=== PATIENT | female | born 1945 | race Caucasian/White ===

== ENCOUNTER → 2016-03-06 | Outpatient (CLI) | payer OTHER ==
[~2016-03-06] VITALS: Ht 154.9 cm; Wt 55.3 kg
[~2016-03-06] MED LIST: ADULT LOW DOSE81 MG PO; ADVAIR HFA115 MCG/21 INH; ALBUTEROL2.5 MG/0.1 INH; AMOX TR-K CLV1 EAC4 PO; ANTI-DIARRHEAL2 M1 PO; ATIVAN1 MG PO; AUGMENTIN 500-1 EACH PO; DEXAMETHASONE 44 M1 PO; DUONEB 2.5-0.5 M3 ML INH; FOLIC ACID1 MG PO; HYDROCODON-ACE1 EAC7 PO; HYDROCODONE-AP1 EAC6 PO; LEVAQUIN 500 M500 M2 PO; LIDOCREAM5 GM TP; MAGNESIUM OXID400 MG PO; MIRTAZAPINE15 M2 PO; MORPHINE SULFAT15 M3 PO; MORPHINE SULFAT15 M4 PO; MS CONTIN 60 MG60 MG PO; MS CONTIN15 MG PO; NITROGLYCERIN0.4 MG SUBLING; PANTOPRAZOLE SO40 M1 PO; PREDNISONE 20 M20 MG PO; PROTONIX 20 MG20 M1 PO; REGLAN 5 MG TAB5 MG PO; SPIRIVA INH; SYMBICORT160 MCG/4. INH; TOPROL XL25 MG PO; VENTOLIN HFA 1818 GM INH; ZANTAC 150MG T150 MG PO; ZOFRAN ODT4 MG DISSOLVE
--- NOTE | ~2016-03-06 | S ---
[facility] [place] [address] SURGICAL PATH RPT PROCEDURE Name: MARGI BRIAN Room #: [facility]..#: [id number] Admission: 03/06/16 Date of : 47 Discharge: Report #: [id number] Path Case #: [id number] PATHOLOGY REPORT COLLECTION DATE: 03/06/2016 RECEIVED DATE: 03/07/2016 SUBMITTING PHYS: Dr. Armaan Peña OTHER PHYS: Dr. Kiel Monterroso SPECIMEN(S) RECEIVED: A.Right lung mass * * * * * * * * * * * * FINAL DIAGNOSIS: Lung, needle core biopsy: - WELL DIFFERENTIATED ADENOCARCINOMA IN AN ACINAR PATTERN. COMMENT: Co-review: Dr. Sindi Bond Findings are discussed with Dr. Kiel Monterroso at 1:14 pm on 03/08/16. (IUV:all; d/t: 03/08/2016) PATHOLOGIST: Kita Bailey M.D. REPORT ELECTRONICALLY SIGNED BY: Kita Bailey M.D. DATE/TIME: 03/08/2016 15:35 * * * * * * * * * * * * GROSS PATHOLOGY: The specimen is received in formalin, labeled "BrianLilliamcy and lung bx." Received is a 0.8 x 0.3 x 0.2 cm aggregate of white-alarcon and irregular soft tissue fragments. The specimen is entirely submitted in cassette A1. (TTL; 03/07/2016) CLINICAL HISTORY: Right lung mass INITIAL CPT CODE(S): A; 60038 Professional services performed by [facility] at [facility] [address] [place] [address] Technical services performed by [facility] at [address] [place] [id number]. [facility] [address] [place] [address] SURGICAL PATH RPT PROCEDURE Name: MARGI BRIAN Room #: TASHA Valdez#: [id number] Admission: 03/06/16 Date of : 47 Discharge: Report #: [id number] Path Case #: [id number] [address] PHONE: [phone] DIRECTOR: Twin Velázquez M.D. * * * END OF REPORT * * *
[2016-03-06 08:39] VITALS: BP 143/75
[2016-03-06 09:03] LABS: HEMATOCRIT 42.2 % (37.0-47.0); HEMOGLOBIN 14.1 gm/dL (12.0-15.0); MCH 33.3 pg (26.0-34.0); MCHC 33.5 % (28.0-37.0); MCV 99.4 fL (80.0-100.0); RBC 4.25 mil/uL (4.20-5.00); RDW 16.5 % (10.5-14.5); WBC 5.8 thou/uL (4.0-11.0)
[2016-03-06 09:15] LABS: CALCIUM 8.9 mg/dL (8.5-10.1); CREATININE 0.9 mg/dL (0.6-1.3); POTASSIUM 4.1 mmol/L (3.5-5.1)
[2016-03-06 09:18] LABS: APTT 25.6 Seconds (24.5-32.8); PROTIME 10.7 Seconds (9.3-11.4)
[2016-03-06 10:50] VITALS: BP 143/75
== END ==
LOC: CAT 08:00
PROVIDERS: Internal Medicine Pulmonary Disease
DX: C34.91 Malignant neoplasm of unspecified part of right bronchus or lung (principal); I10 Essential (primary) hypertension; J44.1 Chronic obstructive pulmonary disease with (acute) exacerbation; J44.0 Chronic obstructive pulmonary disease with (acute) lower respiratory infection

== ENCOUNTER 2016-05-21 17:24 | Inpatient (IN) | payer OTHER, MEDICARE ==
[~2016-05-21] VITALS: Ht 154.9 cm; Wt 51.6 kg
--- NOTE | ~2016-05-21 | H ---
[facility] [place] [address] HISTORY AND PHYSICAL Name: BLANE MICHELE Room #: 418-P ADM IN M.R.#: [id number] Admission: 05/21/16 Attend Phys: Lolis Suazo Discharge: Date of : 47 Report #: [id number] THIS REPORT FOR: //name// CC: Sukhdev Germain DATE OF SERVICE: 05/21/2016 CHIEF COMPLAINT: Weakness. HISTORY OF PRESENT ILLNESS: The patient is a 70-year-old female with a history of lung cancer, has undergone chemotherapy, was admitted from the office today with weakness. She has been seen twice in the last week with loss of appetite, general weakness and some nausea. She lost her appetite and has not been eating well. She has been complaining of more generalized pain. Dr. Germain admitted her yesterday for evaluation and treatment. PAST MEDICAL HISTORY: Right-sided lung cancer, COPD, hypertension, history of pneumonia, history of asthma. PAST SURGICAL HISTORY: Hysterectomy, cholecystectomy, hernia repair. FAMILY HISTORY: Noncontributory. SOCIAL HISTORY: 49-mnsu-nanr history of smoking. ALLERGIES: CODEINE. MEDICATIONS: Symbicort, Protonix, magnesium, DuoNeb, Toprol, Ventolin, Zofran. REVIEW OF SYSTEMS: She is confused, really cannot give a review. PHYSICAL EXAMINATION: VITAL SIGNS: Temperature 97, pulse 98, respirations 20, blood pressure 109/40, O2 sat 94% on 2 liters. GENERAL: She is awake, seems weak, a little confused, seems to know she is in the hospital. LUNGS: Clear. HEART: Regular. ABDOMEN: Soft, normoactive bowel sounds. EXTREMITIES: No edema. LABORATORY DATA: White count 2.2, hemoglobin 8, platelets is 27,000, potassium 3.1, BUN and creatinine stable, calcium is low, albumin is 2.3. ASSESSMENT: 1. Lung cancer. [facility] [address] [place] [address] HISTORY AND PHYSICAL Name: BLANE MICHELE Room #: 418-P [facility] IN [facility]#: [id number] Admission: 05/21/16 Attend Phys: Lolis Suazo Discharge: Date of : 47 Report #: [id number] 2. Pancytopenia. 3. Electrolyte disturbance. 4. Severe protein calorie malnutrition. PLAN: Supportive measures at this point with IV fluids and electrolyte replacement. Home medications to continue. I will ask Oncology to see her as well. <ELECTRONICALLY SIGNED> By: Sam Mesa MD 05/22/16 1101 1038 1054 Sam Mesa MD /nt
--- NOTE | ~2016-05-21 | D ---
[facility] [place] [address] DISCHARGE SUMMARY Name: BLANE MICHELE Room #: 430-P ADM IN M.R.#: [id number] Admission: 05/21/16 Attend Phys: Lolis Suazo Discharge: Date of : 47 Report #: [id number] THIS REPORT FOR: //name// CC: Sukhdev Germain DATE OF SERVICE: 05/24/2016 FINAL DIAGNOSES: 1. Lung cancer. 2. Chronic obstructive pulmonary disease. 3. Metabolic encephalopathy. HOSPITAL COURSE: The patient was admitted from home with confusion and weakness. She had not been eating well, was somewhat dehydrated. IV fluids were added and electrolytes were supplemented. She had confusion during her stay and I lowered her doses of morphine and discontinued Ativan. She improved dramatically with this overnight. Dr. Schaeffer saw her in consultation who knows her from outpatient chemotherapy. She was pancytopenic, but no treatment was indicated at this point. Plan was to follow up as an outpatient. PHYSICAL EXAMINATION: GENERAL: On the day of discharge, she was awake and alert and oriented to place and situation. She had stable vital signs. LUNGS: Clear. HEART: Regular. ABDOMEN: Soft. EXTREMITIES: Showed no edema. DISPOSITION: To be discharged to home with diet and activity as tolerated. FOLLOWUP: With Dr. Germain and Dr. Schaeffer in 1 week. DISCHARGE MEDICATIONS: She will resume all home medications, but decrease morphine ER to 15 mg twice a day and morphine IR 15 mg half tab q. 6 hours p.r.n. pain. <ELECTRONICALLY SIGNED> By: Sam Mesa MD 05/24/16 1221 1044 1120 Sam Mesa MD /nt
[~2016-05-21 17:24] MED LIST changes: -MORPHINE SULFAT15 M3 PO
[2016-05-21 18:42] VITALS: BP 118/56
[2016-05-21 20:00] VITALS: BP 119/52
[2016-05-21 22:32] LABS: HEMATOCRIT 25.4 % (37.0-47.0); HEMOGLOBIN 8.8 gm/dL (12.0-15.0); MCH 34.1 pg (26.0-34.0); MCHC 34.6 g/dL (28.0-37.0); MCV 98.6 fL (80.0-100.0); RBC 2.57 mil/uL (4.20-5.00); RDW 15.9 % (10.5-14.5); WBC 2.3 thou/uL (4.0-11.0)
[2016-05-21 22:39] LABS: MANUAL DIFF YES
[2016-05-21 22:44] LABS: CALCIUM 8.4 mg/dL (8.5-10.1); CREATININE 0.8 mg/dL (0.6-1.3); POTASSIUM 3.4 mmol/L (3.5-5.1)
[2016-05-21 23:41] LABS: ABSOLUTE NEUTROPHILS 0.3 thou/uL (1.4-8.2); ATYPICAL LYMPHS 3 %; TOTAL CELL COUNT 100
[2016-05-21 23:42] LABS: PLATELET COUNT 27 thou/uL (150-400)
[2016-05-22 04:48] VITALS: BP 127/61
[2016-05-22 05:49] LABS: HEMATOCRIT 23.9 % (37.0-47.0); HEMOGLOBIN 8.1 gm/dL (12.0-15.0); MCH 33.5 pg (26.0-34.0); MCHC 33.7 g/dL (28.0-37.0); MCV 99.2 fL (80.0-100.0); RBC 2.41 mil/uL (4.20-5.00); RDW 15.8 % (10.5-14.5); WBC 2.2 thou/uL (4.0-11.0)
[2016-05-22 06:21] LABS: ALBUMIN 2.3 g/dL (3.4-5.0); CALCIUM 7.9 mg/dL (8.5-10.1); CREATININE 0.7 mg/dL (0.6-1.3); POTASSIUM 3.1 mmol/L (3.5-5.1); TOTAL BILIRUBIN 0.4 mg/dL (<0.1-1.0)
[2016-05-22 07:15] VITALS: BP 109/40
[2016-05-22 11:30] VITALS: BP 110/57
[2016-05-22 15:00] VITALS: BP 130/50
[2016-05-22 20:00] VITALS: BP 120/50
[2016-05-23 06:48] LABS: HEMATOCRIT 23.2 % (37.0-47.0); HEMOGLOBIN 7.9 gm/dL (12.0-15.0); WBC 2.1 thou/uL (4.0-11.0)
[2016-05-23 06:50] LABS: MCH 33.9 pg (26.0-34.0); MCHC 34.2 g/dL (28.0-37.0); RBC 2.34 mil/uL (4.20-5.00); RDW 16.5 % (10.5-14.5)
[2016-05-23 06:52] LABS: MANUAL DIFF YES
[2016-05-23 06:54] LABS: PLATELET COUNT 37 thou/uL (150-400)
[2016-05-23 07:19] LABS: CALCIUM 7.7 mg/dL (8.5-10.1); CREATININE 0.6 mg/dL (0.6-1.3)
[2016-05-23 07:52] VITALS: BP 104/59
[2016-05-23 07:58] LABS: ABSOLUTE NEUTROPHILS 0.6 thou/uL (1.4-8.2); TOTAL CELL COUNT 100
[2016-05-23 08:00] LABS: ANISOCYTOSIS 1+
[2016-05-23 14:23] VITALS: BP 100/54
[2016-05-23 20:46] VITALS: BP 99/40
[2016-05-24 04:00] VITALS: BP 133/70
[2016-05-24 05:09] LABS: HEMATOCRIT 23.1 % (37.0-47.0); HEMOGLOBIN 7.8 gm/dL (12.0-15.0); MCH 33.7 pg (26.0-34.0); MCHC 33.9 g/dL (28.0-37.0); MCV 99.2 fL (80.0-100.0); RBC 2.33 mil/uL (4.20-5.00); RDW 16.4 % (10.5-14.5); WBC 2.1 thou/uL (4.0-11.0)
[2016-05-24 05:39] LABS: CALCIUM 7.7 mg/dL (8.5-10.1); CREATININE 0.6 mg/dL (0.6-1.3)
[2016-05-24 08:29] VITALS: BP 121/51
[2016-05-24] MEDS ORDERED: MS CONTIN15 MG PO (10:36)
[2016-05-24] MEDS ORDERED: MORPHINE SULFAT15 M3 PO (10:36)
[2016-05-24 10:51] VITALS: BP 121/51
== END 2016-05-24 15:30 | disposition home health service (06) | DRG 180 ==
LOC: 4E 17:24
PROVIDERS: Internal Medicine; Internal Medicine Geriatric Medicine
DX: C34.90 Malignant neoplasm of unspecified part of unspecified bronchus or lung (principal); E43 Unspecified severe protein-calorie malnutrition; G93.41 Metabolic encephalopathy; D61.818 Other pancytopenia; I10 Essential (primary) hypertension; J44.9 Chronic obstructive pulmonary disease, unspecified; J45.909 Unspecified asthma, uncomplicated; E86.9 Volume depletion, unspecified; Z87.01 Personal history of pneumonia (recurrent); Z90.49 Acquired absence of other specified parts of digestive tract; Z87.891 Personal history of nicotine dependence; Z68.21 Body mass index [BMI] 21.0-21.9, adult; Z88.6 Allergy status to analgesic agent; Z90.710 Acquired absence of both cervix and uterus
CPT/HCPCS: 10783

== ENCOUNTER 2016-07-11 19:28 | Inpatient (IN) | payer OTHER, MEDICARE ==
[~2016-07-11] VITALS: Ht 154.9 cm; Wt 50.3 kg
--- NOTE | ~2016-07-11 | HC ---
[facility] [address] CONSULTATION Name: BLANE MICHELE Room #: 442-P [facility] IN M.R.#: [id number] Admission: 07/11/16 Attend Phys: Lolis Suazo Discharge: 07/13/16 Date of : 47 Report #: [id number] THIS REPORT FOR: //name// CC: Sukhdev Palomares MD [facility] Kiel Schaeffer MD HISTORY OF PRESENT ILLNESS: The patient is a very pleasant 70-year-old female with a history of stage IV well-differentiated adenocarcinoma of the right lung with acinar patterns from about 03/06/2016. The PET scan at that time showed severe obstruction and signs of change with an FEV1 of 0.83. There was also a biopsy of the left lower lobe lesion that showed a grade II adenocarcinoma in lepidic pattern. The patient were thought to be unresectable and has presented with multifocal adenocarcinoma, perhaps mets. The patient began carboplatin, Alimta and Avastin in about mid April 2016. Recently, the patient had her fourth round of chemotherapy about 1.5 to 2 weeks ago, had odynophagia and uses velvet glove at home. Has had some mouth sores, but better than the past times. The patient reports that after cycle 2, she was responding. Notes per Dr. Schaeffer suggest that she is considering maintenance Alimta after completion of the 4 cycles, pending a CAT scan that is due in about 1-2 weeks. The patient, at this time, was admitted with left wrist/hand pain that was fairly subacute in onset, thought to be gout and has responded to steroids, without antibiotics. The patient before this had some fatigue. No headache. Did have some of the sore throat, which has been present for some time and may have even been present a little bit before her chemotherapy. She also talked about some type of throat stretching by a doctor. Her cough is slightly better. She has not been coughing more than usual, but also notably slow. No new skin rash. No new arm or leg swelling. PAST MEDICAL HISTORY: Past history is notable for the history of the stage IV adenocarcinoma of the lung. Also diabetes mellitus, gout, hypertension, COPD, hysterectomy, cholecystectomy, had a lung biopsy and bronchoscopy and hernia repair. FAMILY HISTORY: She also has a family history of breast cancer in her mother and sister, a twin with lymphoma. Another brother may have had esophageal cancer. SOCIAL HISTORY: She is . Stopped smoking, 03/06/2015. Alcohol: None. Used to work as a licensed sales assistant. PHYSICAL EXAMINATION: GENERAL: The patient appears her stated age. [facility] [address] [place] [address] CONSULTATION Name: BLANE MICHELE Room #: 442-P DIS IN M.R.#: [id number] Admission: 07/11/16 Attend Phys: Lolis Suazo Discharge: 07/13/16 Date of : 47 Report #: [id number] VITAL SIGNS: Height is 5 feet 1, which is 154.9 cm. Weight is 111 pounds, which is 50.4 kilograms. MOOD: The patient is alert and pleasant. NEUROLOGIC: She is moving all extremities. Mentation and speech is clear. She has sort of splinting in the use of her left hand pain, though she said that is better today. VITAL SIGNS: She has been afebrile with a 98.3 temperature, blood pressure is 85/44, O2 sat 98%, pulse 82 and respirations 20. HEENT: Oropharynx clear. At this time, she does have an upper plate in. LUNGS: Have good symmetric air movement, without rhonchi or wheezes. HEART: Regular rate. LYMPHATIC: No enlarged lymph nodes in the supraclavicular, cervical, axillary or inguinal region. ABDOMEN: Slightly scaphoid. No masses, nontender. EXTREMITIES: Without clubbing, cyanosis or edema. The patient does hold her wrist at a slightly bent angle and it does look slightly swollen, but she says that it is improved. LABORATORY DATA: Lab here is notable for sodium of 133, BUN 6 and creatinine 1. AST 27, calcium 7.6 and ALT normal. Albumin 2.7. White count 1.1 today, hemoglobin 7.4, MCV 101.5 and platelets 188,000. ASSESSMENT AND PLAN: 1. Stage IV non-small cell lung cancer, now status post fourth cycle of carboplatin, Alimta and Avastin chemotherapy, with plans for maintenance therapy. The patient will be followed up with Dr. Schaeffer as planned an 1-2 weeks with a CAT scan to determine that status. 2. Anemia. Hemoglobin is 7.4. We would not transfuse at this time, but await improvement after chemotherapy. 3. Neutropenia. We will invoke precautions. The patient should not be around other sick persons and the people should be washing their hands before entering the room and after entering. I will expect her counts to improve on their own. She is afebrile. I would not initiate antibiotics. We will do cultures at this time. 4. Gout. Continue steroids per Dr. Mesa. 5. Heart issues, continues metoprolol. 6. Pain, continues on morphine. 7. Hepatitis, dronabinol. 8. Emphysema, continues ipratropium. 9. Mood/sleep. continues trazodone. 10. Deep venous thrombosis prophylaxis, continues Lovenox. <ELECTRONICALLY SIGNED> By: Trae Valerio MD 07/13/16 1947 0934 1443 Trae Valerio MD /nt
--- NOTE | ~2016-07-11 | H ---
[facility] [place] [address] HISTORY AND PHYSICAL Name: BLANE MICHELE Room #: 442-P ADM IN M.R.#: [id number] Admission: 07/11/16 Attend Phys: Lolis Suazo Discharge: Date of : 47 Report #: [id number] THIS REPORT FOR: //name// CC: Sukhdev Germain DATE OF SERVICE: 07/12/2016 CHIEF COMPLAINT: Pain in the left hand and wrist. HISTORY OF PRESENT ILLNESS: The patient is a 70-year-old female who presented to the emergency room with pain in the left hand. She woke yesterday morning with redness, pain and swelling in the left hand and wrist and denied any new injury, activity or trauma. The pain was so intense that she took morphine at home without relief and presented to the emergency room. She was having stiffness and discomfort even with trying to move her fingers or her wrist. X-ray through the emergency room was unremarkable. She currently is undergoing chemotherapy for lung cancer about the last 3 weeks. PAST MEDICAL HISTORY: COPD, depression, asthma, lung cancer diagnosed in January 2016, chronic pain. PAST SURGICAL HISTORY: Noncontributory. FAMILY HISTORY: Noncontributory. SOCIAL HISTORY: She lives at home. She has a 40 pack-year history of smoking. ALLERGIES: PENICILLIN AND CODEINE. MEDICATIONS: Morphine ER 15 mg twice a day and morphine IR 7.5 mg q.6 hours p.r.n., Toprol-XL 12.5 mg b.i.d., magnesium 400 mg b.i.d., DuoNeb, Spiriva. REVIEW OF SYSTEMS: She complains of poor appetite. Denies headache, chest pain, shortness of breath, myalgias, arthralgias, syncope or fall. PHYSICAL EXAMINATION: VITAL SIGNS: Temperature 37.2, pulse 75, respirations 22, and blood pressure 97/45. GENERAL: She is awake and alert, sitting up in bed, in no distress, trying to eat breakfast. HEAD AND NECK: Unremarkable. LUNGS: Clear anteriorly. HEART: Regular, no murmur. ABDOMEN: Soft, normoactive bowel sounds. EXTREMITIES: No edema in the legs. Her left hand over the metacarpals is red, warmth to touch, swollen and very tender. She has stiffness at wrist and [address] [address] HISTORY AND PHYSICAL Name: BLANE MICHELE Room #: [address] [place] [address] IN M.R.#: [id number] Admission: 07/11/16 Attend Phys: Lolis Suazo Discharge: Date of : 47 Report #: [id number] fingers. NEUROLOGIC: Global strength about 3/5 throughout. She has diffuse muscle atrophy. LAB REVIEW: Hemoglobin is 7, white count is 2. There is no left shift. Her uric acid was only 6.4. Albumin 2.7. X-ray of the hand was negative for fracture. ASSESSMENT: 1. Acute gout. 2. Inflammatory arthritis of the left wrist. 3. Lung cancer. 4. Leukocytosis. 5. Anemia of chronic disease. 6. Chronic obstructive pulmonary disease. PLAN: Even with the uric acid still marginally high and within the normal range clinically supports a diagnosis of gout with acute onset of redness, warmth and swelling with pain. Steroids have been ordered. I will ask DrMario ____ to review her while she is here and see if she needs transfusion. Follow up lab data has been added. Lovenox for DVT prophylaxis given her ongoing malignancy. <ELECTRONICALLY SIGNED> By: Sam Mesa MD 07/12/16 1318 1135 1204 Sam Mesa MD /nt
--- NOTE | ~2016-07-11 | D ---
[facility] [place] [address] DISCHARGE SUMMARY Name: BLANE MICHELE Room #: 442-P [facility] IN M.R.#: [id number] Admission: 07/11/16 Attend Phys: Lolis Suazo Discharge: 07/13/16 Date of : 47 Report #: [id number] THIS REPORT FOR: //name// CC: Sukhdev Germain DATE OF SERVICE: 07/13/2016 FINAL DIAGNOSES: 1. Acute gout. 2. Acute inflammatory arthritis. 3. Lung cancer. 4. Leukocytosis. 5. Anemia of chronic disease. 6. Chronic obstructive pulmonary disease. HOSPITAL COURSE: The patient was admitted to the Emergency Room with pain in the left wrist. She was unable to use her hand due to pain and required narcotics for pain control. X-ray was negative for fracture. She did not have a fever or elevated white count to suggest infection. She had a soft effusion with warmth and redness with exquisite tenderness over the metacarpal bones of the left hand and into the left wrist. I clinically assessed her as acute gout and placed her on steroids. Overnight, this improved her symptoms significantly but not to resolution. Dr. Valerio followed her briefly related to her counts from her chemotherapy for lung cancer. At this point, she did not have any new recommendations, but did not feel she needed transfusion. DISPOSITION: To be discharged to home to resume all medications, diet, activity and followup. She will also be on prednisone 20 mg twice a day for 5 days. <ELECTRONICALLY SIGNED> By: Sam Mesa MD 07/16/16 1217 1528 1614 Sam Mesa MD /nt
[~2016-07-11 19:28] MED LIST changes: +MORPHINE SULFAT15 M3 PO
[2016-07-11 19:31] VITALS: BP 119/53
[2016-07-11 20:39] LABS: MCH 33.4 pg (26.0-34.0); MCHC 33.3 g/dL (28.0-37.0); MCV 100.2 fL (80.0-100.0); PLATELET COUNT 174 thou/uL (150-400); RBC 2.09 mil/uL (4.20-5.00); RDW 21.1 % (10.5-14.5); WBC 2.1 thou/uL (4.0-11.0)
[2016-07-11 20:41] LABS: MANUAL DIFF YES
[2016-07-11 20:51] LABS: CALCIUM 7.6 mg/dL (8.5-10.1); POTASSIUM 3.5 mmol/L (3.5-5.1)
[2016-07-11 20:56] LABS: ALBUMIN 2.7 g/dL (3.4-5.0); TOTAL BILIRUBIN 0.5 mg/dL (<0.1-1.0); TOTAL PROTEIN 5.5 g/dL (6.4-8.2)
[2016-07-11 21:07] LABS: ABSOLUTE NEUTROPHILS 0.8 thou/uL (1.4-8.2); ANISOCYTOSIS 1+; HYPOCHROMASIA SLIGHT; MACROCYTES 1+; TOTAL CELL COUNT 100
[2016-07-11 22:29] VITALS: BP 119/53
[2016-07-11 23:05] VITALS: BP 115/63
[2016-07-12 04:20] VITALS: BP 97/42
[2016-07-12 07:05] VITALS: BP 97/45
[2016-07-12 19:19] VITALS: BP 106/27
[2016-07-13 05:10] VITALS: BP 103/32
[2016-07-13 06:30] LABS: HEMATOCRIT 22.4 % (37.0-47.0); HEMOGLOBIN 7.4 gm/dL (12.0-15.0); MCH 33.5 pg (26.0-34.0); MCHC 33.1 g/dL (28.0-37.0); MCV 101.5 fL (80.0-100.0); RBC 2.21 mil/uL (4.20-5.00); RDW 21.2 % (10.5-14.5)
[2016-07-13 06:32] LABS: WBC 1.1 thou/uL (4.0-11.0)
[2016-07-13 07:22] VITALS: BP 85/44
[2016-07-13] MEDS ORDERED: PANTOPRAZOLE SO40 M1 PO (09:29)
[2016-07-13] MEDS ORDERED: PREDNISONE 20 M20 MG PO (09:29)
[2016-07-13 10:11] VITALS: BP 85/44
== END 2016-07-13 12:19 | disposition home or self-care (01) | DRG 553 ==
LOC: ER 19:28 → 4S 22:01 → EROBS 22:01 → 4S 22:53
PROVIDERS: Internal Medicine Geriatric Medicine; Nurse Practitioner Family
DX: M10.9 Gout, unspecified (principal); E43 Unspecified severe protein-calorie malnutrition; C34.90 Malignant neoplasm of unspecified part of unspecified bronchus or lung; J44.9 Chronic obstructive pulmonary disease, unspecified; F32.9 Major depressive disorder, single episode, unspecified; E11.9 Type 2 diabetes mellitus without complications; D70.9 Neutropenia, unspecified; K75.9 Inflammatory liver disease, unspecified; D63.8 Anemia in other chronic diseases classified elsewhere; M19.032 Primary osteoarthritis, left wrist; R13.10 Dysphagia, unspecified; Z88.6 Allergy status to analgesic agent; Z88.0 Allergy status to penicillin; Z90.710 Acquired absence of both cervix and uterus; Z90.49 Acquired absence of other specified parts of digestive tract; Z87.891 Personal history of nicotine dependence
CPT/HCPCS: 10195

== ENCOUNTER → 2016-08-07 | Outpatient (CLI) | payer OTHER ==
[~2016-08-07] VITALS: Ht 154.9 cm; Wt 45.4 kg
[~2016-08-07] MED LIST changes: +ACCUNEB SO1.25 MG/1 INH; +ALLOPURINOL 10100 M1 PO; +ANTIVERT25 MG PO; +ASPIR 8181 MG PO; +CARAFATE 11 GM/10 M1 PO; +COLCHICINE0.6 MG PO; +DRONABINOL5 MG PO; +LORAZEPAM 1 MG T1 M1 PO; +MS CONTIN 60 MG60 M1 PO; +PAXIL10 MG PO; +PREDNISONE 20 M20 M1 PO; +REGLAN 10 MG TA10 MG PO; +SENNA8.6 MG PO; +TRAZODONE HCL100 MG PO; +TRAZODONE HCL50 MG PO; +ZOFRAN4 MG PO
== END ==
LOC: GI 07:35
DX: K22.2 Esophageal obstruction (principal); K29.70 Gastritis, unspecified, without bleeding; K21.9 Gastro-esophageal reflux disease without esophagitis; Z85.118 Personal history of other malignant neoplasm of bronchus and lung; J44.9 Chronic obstructive pulmonary disease, unspecified; J45.909 Unspecified asthma, uncomplicated; I10 Essential (primary) hypertension; Z90.710 Acquired absence of both cervix and uterus; Z90.49 Acquired absence of other specified parts of digestive tract; Z98.890 Other specified postprocedural states; Z79.899 Other long term (current) drug therapy; Z88.8 Allergy status to other drugs, medicaments and biological substances; F17.210 Nicotine dependence, cigarettes, uncomplicated
CPT/HCPCS: 62110; 62900

== ENCOUNTER 2016-08-18 12:00 | Inpatient (IN) | payer OTHER ==
[~2016-08-18] VITALS: Ht 167.6 cm; Wt 44.0 kg
--- NOTE | ~2016-08-18 | H ---
[facility] [place] [address] HISTORY AND PHYSICAL Name: BLANE MICHELE Room #: 428-P ADM IN M.R.#: [id number] Admission: 08/18/16 Attend Phys: Lolis Suazo Discharge: Date of : 47 Report #: [id number] THIS REPORT FOR: //name// CC: Sukhdev Germain DATE OF SERVICE: 08/18/2016 CHIEF COMPLAINT: Nausea and vomiting. HISTORY OF PRESENT ILLNESS: The patient is a 71-year-old female who has lung cancer, undergoing chemotherapy, presented to the emergency room with nausea, vomiting and pain in the right breast. She recently had a course of chemotherapy and at home has had vomiting and unable to eat. She has been very weak and over the last day noted sudden swelling and redness, pain of the right wrist. She had a similar episode month or 6 weeks ago, was treated for gout of the left wrist with steroids and chemotherapy induced nausea, vomiting. PAST MEDICAL HISTORY: COPD, hypertension, lung cancer. PAST SURGICAL HISTORY: Noncontributory. FAMILY HISTORY: Unknown. SOCIAL HISTORY: Remote tobacco use. Lives with family. No chronic alcohol use. ALLERGIES: PENICILLIN, CODEINE. MEDICATIONS: 1. Albuterol inhaler and nebulizer, Toprol-XL 12.5 mg b.i.d., aspirin 81 mg, morphine 15 mg q. 4 hours p.r.n., morphine extended release 60 mg b.i.d., trazodone 50 mg at bedtime, magnesium 400 mg, Senokot, oral Zofran, Marinol 5 mg b.i.d., Protonix 40 mg b.i.d., Reglan 10 mg before meals and at bedtime, folic acid. REVIEW OF SYSTEMS: She denies headache, shortness of breath, chest pain, diarrhea, constipation, dysuria, syncope, fall. PHYSICAL EXAMINATION: VITAL SIGNS: Temperature 36.7, pulse 73, respirations 18, blood pressure 148/65, O2 sat 99% on room air. GENERAL: She is awake and alert, in no distress. HEAD AND NECK: Unremarkable. LUNGS: Clear. HEART: Regular. ABDOMEN: Soft, normoactive bowel sounds. [facility] [address] [place] [address] HISTORY AND PHYSICAL Name: BLANE MICHELE Room #: 428-P [facility] IN M.R.#: [id number] Admission: 08/18/16 Attend Phys: Lolsi Suazo Discharge: Date of : 47 Report #: [id number] EXTREMITIES: No edema. The right wrist has erythema, calor and tenderness to the dorsal aspect along the metacarpal area of the hand and at the wrist joint. She is stiff with limited range of motion. NEUROLOGIC: Cranial nerves intact. Speech is fluent. Motor strength is 3-4/5 and equal throughout. Lab reviewed. ASSESSMENT: 1. Intractable nausea, vomiting due to chemotherapy. 2. Acute gout of the right wrist. 3. Electrolyte disturbance. 4. Lung cancer, undergoing treatment. 5. Chronic obstructive pulmonary disease. 6. Hypertension. 7. Chronic pain syndrome. PLAN: She has had volume and electrolyte replacement overnight. She still has nausea this morning. We will try additional medications and treatment along with treating the gout. Home medications to continue and I will clarify that she is using short-acting morphine as breakthrough pain along with long-acting. Her home list was confused with 2 doses of long-acting morphine. <ELECTRONICALLY SIGNED> By: Sam Mesa MD 08/20/16 0916 0817 1138 Sam Mesa MD /nt
--- NOTE | ~2016-08-18 | D ---
[facility] [place] [address] DISCHARGE SUMMARY Name: BLANE MICHELE Room #: 428-P [facility] IN M.R.#: [id number] Admission: 08/18/16 Attend Phys: Lolis Suazo Discharge: 08/21/16 Date of : 47 Report #: [id number] THIS REPORT FOR: //name// CC: Sukhdev Germain FINAL DIAGNOSES: 1. Acute gout, right wrist. 2. Intractable nausea and vomiting. 3. . 4. Lung cancer. 5. Chronic obstructive pulmonary disease. HOSPITAL COURSE: The patient was admitted with intractable nausea and vomiting and acute swelling, pain, redness of the right wrist following recent chemotherapy for a lung cancer. She was diagnosed with acute gout. This is a similar episode of month or so ago affected her left wrist. She was treated with steroids and initially bowel rest, IV fluid support and electrolyte resuscitation. The following day, her GI symptoms were improved and routine meds were resumed. She was switched to oral prednisone. A short course of colchicine was added as well. With conservative treatment, she improved significantly. PHYSICAL EXAMINATION: On the day of discharge, she was awake and alert with stable vital signs. She was walking the halls with physical therapy, although unsteady. She is wearing 2 liters of oxygen. The swelling in the right wrist has improved significantly. There was just faint erythema, but a limited pain. She had better range of motion at the wrist and fingers. LUNGS: Clear. HEART: Regular. ABDOMEN: Soft with normal bowel sounds. EXTREMITIES: Had no edema in the legs. DISPOSITION: She will be discharged to home with home health for physical therapy. Diet and activity as tolerated. Follow up with Dr. Germain and Dr. Schaeffer. Only new medications will be prednisone and colchicine a week followed by allopurinol 100 mg daily. <ELECTRONICALLY SIGNED> By: Sam Mesa MD 08/21/16 1623 1010 1341 Sam Mesa MD /nt
[~2016-08-18 12:00] MED LIST changes: -ALLOPURINOL 10100 M1 PO; -CARAFATE 11 GM/10 M1 PO; -COLCHICINE0.6 MG PO; -PAXIL10 MG PO; -PREDNISONE 20 M20 M1 PO; -REGLAN 10 MG TA10 MG PO; -SENNA8.6 MG PO; -TRAZODONE HCL50 MG PO; -ZOFRAN4 MG PO
[2016-08-18 12:01] VITALS: BP 128/71
[2016-08-18] MEDS ORDERED: TRAZODONE HCL50 MG PO (12:31)
[2016-08-18] MEDS ORDERED: REGLAN 10 MG TA10 MG PO (12:32)
[2016-08-18] MEDS ORDERED: PAXIL10 MG PO (12:34)
[2016-08-18] MEDS ORDERED: SENNA8.6 MG PO (12:34)
[2016-08-18] MEDS ORDERED: ZOFRAN4 MG PO (12:34)
[2016-08-18 13:31] LABS: ABSOLUTE NEUTROPHILS 3.8 thou/uL (1.4-8.2); BASOPHILS 1.1 % (0.0-2.0); EOSINOPHILS 3.7 % (0.0-3.0); HEMATOCRIT 30.1 % (37.0-47.0); HEMOGLOBIN 9.9 gm/dL (12.0-15.0); LYMPHOCYTES 15.5 % (24.0-44.0); MCH 31.7 pg (26.0-34.0); MCHC 32.8 g/dL (28.0-37.0); MCV 96.6 fL (80.0-100.0); MONOCYTES 3.6 % (1.0-8.0); POLYS 76.1 % (36.0-66.0); RBC 3.11 mil/uL (4.20-5.00); RDW 17.8 % (10.5-14.5)
[2016-08-18 13:32] LABS: MANUAL DIFF NO
[2016-08-18 13:44] LABS: ALBUMIN 2.3 g/dL (3.4-5.0); CALCIUM 7.9 mg/dL (8.5-10.1); CREATININE 0.7 mg/dL (0.6-1.0); DIRECT BILIRUBIN 0.3 mg/dL (<0.1-0.3); TOTAL BILIRUBIN 0.6 mg/dL (<0.1-1.0); TOTAL PROTEIN 5.1 g/dL (6.4-8.2); URIC ACID* 4.4 mg/dL (2.6-7.2)
[2016-08-18 13:48] LABS: POTASSIUM 2.9 mmol/L (3.5-5.1)
[2016-08-18 14:01] LABS: PLATELET COUNT 98 thou/uL (150-400)
[2016-08-18 14:27] LABS: URINE BILIRUBIN NEGATIVE (Negative); URINE BLOOD NEGATIVE (Negative); URINE COLOR YELLOW; URINE GLUCOSE-RANDOM* NEGATIVE (Negative); URINE KETONES NEGATIVE (Negative); URINE LEUKOCYTES-REFLEX NEGATIVE (Negative); URINE PROTEIN (DIPSTICK) NEGATIVE (Negative); URINE UROBILINOGEN 0.2 E.U./dl (0.2-1.0)
[2016-08-18 16:15] VITALS: BP 119/54
[2016-08-18 17:55] VITALS: BP 139/70
[2016-08-18 19:26] VITALS: BP 138/82
[2016-08-19 00:06] VITALS: BP 143/52
[2016-08-19 03:53] VITALS: BP 148/65
[2016-08-19 05:58] LABS: CALCIUM 7.9 mg/dL (8.5-10.1); CREATININE 0.7 mg/dL (0.6-1.0); POTASSIUM 3.9 mmol/L (3.5-5.1)
[2016-08-19 08:00] VITALS: BP 140/61
[2016-08-19 08:48] LABS: URIC ACID* 3.7 mg/dL (2.6-7.2)
[2016-08-19 16:00] VITALS: BP 116/82
[2016-08-19 20:40] VITALS: BP 145/74
[2016-08-20 04:21] VITALS: BP 155/78
[2016-08-20 04:57] LABS: HEMATOCRIT 31.5 % (37.0-47.0); HEMOGLOBIN 10.4 gm/dL (12.0-15.0); MCH 31.9 pg (26.0-34.0); MCHC 32.9 g/dL (28.0-37.0); MCV 96.7 fL (80.0-100.0); RBC 3.25 mil/uL (4.20-5.00); RDW 17.7 % (10.5-14.5); WBC 2.4 thou/uL (4.0-11.0)
[2016-08-20 05:12] LABS: CALCIUM 8.7 mg/dL (8.5-10.1); CREATININE 0.7 mg/dL (0.6-1.0); POTASSIUM 3.9 mmol/L (3.5-5.1)
[2016-08-20 09:06] VITALS: BP 109/50
[2016-08-20 15:25] VITALS: BP 124/65
[2016-08-20 20:06] VITALS: BP 129/62
[2016-08-21 04:11] VITALS: BP 148/66
[2016-08-21 07:15] VITALS: BP 146/70
[2016-08-21] MEDS ORDERED: MORPHINE SULFAT15 M3 PO (09:57)
[2016-08-21] MEDS ORDERED: CARAFATE 11 GM/10 M1 PO (09:58)
[2016-08-21] MEDS ORDERED: COLCHICINE0.6 MG PO (09:59)
[2016-08-21] MEDS ORDERED: PREDNISONE 20 M20 M1 PO (09:59)
[2016-08-21] MEDS ORDERED: ALLOPURINOL 10100 M1 PO (10:00)
[2016-08-21 10:04] VITALS: BP 146/70
[2016-08-21 15:45] VITALS: BP 146/70
== END 2016-08-21 15:52 | disposition home health service (06) | DRG 553 ==
LOC: ER 12:00 → EROBS 14:17 → 4E 14:17
PROVIDERS: Emergency Medicine; Internal Medicine Geriatric Medicine
DX: M10.031 Idiopathic gout, right wrist (principal); E43 Unspecified severe protein-calorie malnutrition; C34.90 Malignant neoplasm of unspecified part of unspecified bronchus or lung; Z68.1 Body mass index [BMI] 19.9 or less, adult; J44.9 Chronic obstructive pulmonary disease, unspecified; F32.9 Major depressive disorder, single episode, unspecified; F41.9 Anxiety disorder, unspecified; I10 Essential (primary) hypertension; G30.9 Alzheimer's disease, unspecified; F02.80 Dementia in other diseases classified elsewhere, unspecified severity, without behavioral disturbance, psychotic disturbance, mood disturbance, and anxiety; K21.9 Gastro-esophageal reflux disease without esophagitis; E87.6 Hypokalemia; R11.2 Nausea with vomiting, unspecified; T45.1X5A Adverse effect of antineoplastic and immunosuppressive drugs, initial encounter; G89.4 Chronic pain syndrome; Z79.82 Long term (current) use of aspirin; Y92.89 Other specified places as the place of occurrence of the external cause; Z79.899 Other long term (current) drug therapy; Z90.710 Acquired absence of both cervix and uterus; Z90.49 Acquired absence of other specified parts of digestive tract; Z87.891 Personal history of nicotine dependence; Z92.21 Personal history of antineoplastic chemotherapy; Z88.0 Allergy status to penicillin; Z88.8 Allergy status to other drugs, medicaments and biological substances
CPT/HCPCS: 10783

== ENCOUNTER 2016-09-11 13:38 | Emergency (ER) | payer OTHER ==
[~2016-09-11] VITALS: Ht 154.9 cm; Wt 43.1 kg
--- NOTE | ~2016-09-11 | EKG ---
[place] [address] [facility] [place] [address] ELECTROCARDIOGRAM REPORT Name: RYNEBLANE Room #: DEP SALINA Valdez#: [id number] Admission: 09/11/16 Attend Phys: Discharge: 09/11/16 Date of : 47 Report #: [id number] THIS REPORT FOR: //name// [facility] ED Test Date: 2016-09-11 Test Time: 13:51:42 Pat Name: BLANE MICHELE Department: Room: Gender: F Ob Gyn Physician Assistant: BRUCE : 1945 Requested By: Chasidy Soliz Order Number: [id number] MD: Maxwell Son Measurements Intervals [place] Rate: 111 P: 63 TN: 151 QRS: 20 QRSD: 88 T: QT: 321 QTc: 436 Interpretive Statements Sinus tachycardia Probable inferior infarct, old Compared to ECG 05/15/2016 13:49:13 Myocardial infarct finding now present Sinus rhythm no longer present T-wave abnormality no longer present Electronically Signed On 09-11-2016 22:07:35 CDT by Maxwell Son [email or web address] <ELECTRONICALLY SIGNED> By: Maxwell Son MD 09/11/162206 135 135 Maxwell Son MD /BANDAR
[~2016-09-11 13:38] MED LIST changes: +ALLOPURINOL 10100 M1 PO; +CARAFATE 11 GM/10 M1 PO; +COLCHICINE0.6 MG PO; +PAXIL10 MG PO; +PREDNISONE 20 M20 M1 PO; +REGLAN 10 MG TA10 MG PO; +SENNA8.6 MG PO; +TRAZODONE HCL50 MG PO; +ZOFRAN4 MG PO
[2016-09-11 14:19] LABS: HEMATOCRIT 24.6 % (37.0-47.0); MCH 31.3 pg (26.0-34.0); MCHC 32.7 g/dL (28.0-37.0); MCV 95.7 fL (80.0-100.0); PLATELET COUNT 67 thou/uL (150-400); RBC 2.56 mil/uL (4.20-5.00); RDW 20.1 % (10.5-14.5); WBC 2.4 thou/uL (4.0-11.0)
[2016-09-11 14:20] LABS: MANUAL DIFF YES
[2016-09-11 14:25] LABS: CALCIUM 7.2 mg/dL (8.5-10.1); CREATININE 1.2 mg/dL (0.6-1.0); POTASSIUM 3.8 mmol/L (3.5-5.1)
[2016-09-11 14:29] LABS: ALBUMIN 2.1 g/dL (3.4-5.0); DIRECT BILIRUBIN 0.3 mg/dL (<0.1-0.3); TOTAL BILIRUBIN 0.6 mg/dL (<0.1-1.0); TOTAL PROTEIN 5.3 g/dL (6.4-8.2)
[2016-09-11 14:48] LABS: ABSOLUTE NEUTROPHILS 1.8 thou/uL (1.4-8.2); TOTAL CELL COUNT 100
[2016-09-11 15:15] LABS: URINE BLOOD NEGATIVE (Negative); URINE COLOR YELLOW; URINE GLUCOSE-RANDOM* NEGATIVE (Negative); URINE KETONES NEGATIVE (Negative); URINE LEUKOCYTES-REFLEX NEGATIVE (Negative); URINE PROTEIN (DIPSTICK) TRACE (Negative); URINE SPECIFIC GRAVITY <= 1.005 (1.003-1.035)
[2016-09-11 15:20] LABS: ICTOTEST (BILI CONFIRMATORY) Negative (Negative); URINE BILIRUBIN NEGATIVE (Negative)
[2016-09-11] MEDS ORDERED: ZOFRAN ODT4 MG PO (17:31)
[2016-09-11] MEDS ORDERED: NORCO 5-325 TA1 EACH PO (17:31)
[2016-09-11 17:46] VITALS: BP 135/51
== END 2016-09-11 17:58 | disposition home or self-care (01) ==
LOC: ER 13:38
PROVIDERS: Emergency Medicine
DX: R53.1 Weakness (principal); R00.0 Tachycardia, unspecified; J44.9 Chronic obstructive pulmonary disease, unspecified; F32.9 Major depressive disorder, single episode, unspecified; F41.9 Anxiety disorder, unspecified; I10 Essential (primary) hypertension; K21.9 Gastro-esophageal reflux disease without esophagitis; G30.9 Alzheimer's disease, unspecified; Z85.118 Personal history of other malignant neoplasm of bronchus and lung; Z90.49 Acquired absence of other specified parts of digestive tract; Z92.21 Personal history of antineoplastic chemotherapy; Z88.5 Allergy status to narcotic agent; Z88.0 Allergy status to penicillin; Z87.891 Personal history of nicotine dependence

== ENCOUNTER 2016-10-17 19:58 | Emergency (ER) | payer OTHER ==
[~2016-10-17] VITALS: Ht 154.9 cm; Wt 45.4 kg
--- NOTE | ~2016-10-17 | EKG ---
[place] [address] [place] [address] ELECTROCARDIOGRAM REPORT Name: BLANE MICHELE Room #: DEP Courtney#: [id number] Admission: 10/17/16 Attend Phys: Discharge: 10/18/16 Date of : 47 Report #: [id number] THIS REPORT FOR: //name// [facility] ED Test Date: 2016-10-17 Test Time: 20:36:57 Pat Name: BLANE MICHELE Department: Room: Gender: F Credit Historian: RANDI : 1945 Requested By: Elaine Adan Order Number: [id number] MD: Josse Evans Measurements Intervals [place] Rate: 140 P: MN: QRS: 49 QRSD: 117 T: 62 QT: 374 QTc: 571 Interpretive Statements Sinus rhythm Nonspecific ST segment abnormality Compared to ECG 09/11/2016 13:51:42 ST and T wave abnormality is less pronounced Electronically Signed On 10-19-2016 8:02:10 CDT by Josse Evans [email or web address] <ELECTRONICALLY SIGNED> By: Josse Evans MD, [facility] 10/19/1602 2036 35 Josse Evans MD, FACC /EPI
[~2016-10-17 19:58] MED LIST changes: +NORCO 5-325 TA1 EACH PO; +ZOFRAN ODT4 MG PO
[2016-10-17 21:21] LABS: MCH 31.6 pg (26.0-34.0); MCV 98.8 fL (80.0-100.0); RDW 26.2 % (10.5-14.5)
[2016-10-17 21:28] LABS: MANUAL DIFF YES
[2016-10-17 21:32] LABS: ANION GAP 11 mmol/L (7-16); BUN 15 mg/dL (7-18); CALCIUM 8.4 mg/dL (8.5-10.1); CHLORIDE 101 mmol/L (98-107); CO2 25 mmol/L (21-32); CREATININE 1.6 mg/dL (0.6-1.0); GLUCOSE 70 mg/dL (74-106); POTASSIUM 4.6 mmol/L (3.5-5.1); SODIUM 137 mmol/L (136-145)
[2016-10-17 21:34] LABS: HEMATOCRIT 18.8 % (37.0-47.0); PLATELET COUNT 12 thou/uL (150-400); WBC 1.6 thou/uL (4.0-11.0)
[2016-10-17 21:40] LABS: ALBUMIN 2.2 g/dL (3.4-5.0); ALKALINE PHOSPHATASE 60 U/L (46-116); SGOT 64 U/L (15-37); SGPT 33 U/L (30-65); TOTAL BILIRUBIN 0.3 mg/dL (<0.1-1.0); TOTAL PROTEIN 5.3 g/dL (6.4-8.2); TROPONIN-I < 0.04 ng/mL (<0.04-0.07)
[2016-10-17 22:00] LABS: ABSOLUTE NEUTROPHILS 0.1 thou/uL (1.4-8.2); TOTAL CELL COUNT 50
[2016-10-17 22:02] LABS: ANISOCYTOSIS 3+; ATYPICAL LYMPHS 4 %; MACROCYTES 1+; MICROCYTES 2+
[2016-10-17 22:03] LABS: HYPOCHROMASIA 2+; OVALOCYTES OCCASIONAL; POIKILOCYTOSIS SLIGHT; POLYCHROMASIA OCCASIONAL
[2016-10-18 00:25] VITALS: BP 100/45
== END 2016-10-18 00:25 | disposition home or self-care (01) ==
LOC: ER 19:58
PROVIDERS: Physician Assistant
DX: R53.1 Weakness (principal); D64.9 Anemia, unspecified; Z51.5 Encounter for palliative care; J44.9 Chronic obstructive pulmonary disease, unspecified; F32.9 Major depressive disorder, single episode, unspecified; F41.9 Anxiety disorder, unspecified; I10 Essential (primary) hypertension; K21.9 Gastro-esophageal reflux disease without esophagitis; G30.9 Alzheimer's disease, unspecified; Z92.21 Personal history of antineoplastic chemotherapy; Z85.118 Personal history of other malignant neoplasm of bronchus and lung; Z98.890 Other specified postprocedural states; Z79.82 Long term (current) use of aspirin; Z87.891 Personal history of nicotine dependence; Z88.5 Allergy status to narcotic agent; Z88.0 Allergy status to penicillin